=== PATIENT | female | born 1940 | race Two or more races ===

== ENCOUNTER 2017-05-10 09:46 | Emergency (ER) | payer MEDICARE, MEDICAID ==
[~2017-05-10] VITALS: Ht 167.6 cm; Wt 68.0 kg
[2017-05-10 09:52] VITALS: BP 156/80
== END 2017-05-10 11:38 | disposition home or self-care (01) ==
LOC: EDBD 09:46 → ER 09:46
DX: S50.01XA Contusion of right elbow, initial encounter (principal); W01.0XXA Fall on same level from slipping, tripping and stumbling without subsequent striking against object, initial encounter; Y93.89 Activity, other specified; Y92.89 Other specified places as the place of occurrence of the external cause; Y99.8 Other external cause status
CPT/HCPCS: 73030; 73080

== ENCOUNTER 2017-10-11 18:01 | Inpatient (IN) | payer MEDICARE, MEDICAID ==
[~2017-10-11] VITALS: Ht 154.9 cm; Wt 75.6 kg
[2017-10-11 19:56] LABS: Alanine Aminotransferase 22 U/L (13-56); Albumin 3.6 g/dL (3.4-5.0); Alkaline Phosphatase 106 U/L (45-117); Anion Gap 9 (5-15); Aspartate Aminotransferase 22 U/L (15-37); BUN/Creatinine Ratio 14.9; Bilirubin, Total 0.4 mg/dL (0.2-1.0); Blood Urea Nitrogen 10 mg/dL (7-18); Calcium 8.6 mg/dL (8.5-10.1); Carbon Dioxide 23 mmol/L (21-32); Chloride 93 mmol/L (98-107); GFR African American 110 mL/min; GFR Non-African American 91 mL/min; Glucose 108 mg/dL (74-106); Potassium 4.2 mmol/L (3.5-5.1); Sodium 125 mmol/L (136-145); Total Protein 8.4 g/dL (6.4-8.2)
[2017-10-11 20:31] LABS: Basophils # (auto) 0.1 uL; Basophils % (auto) 1.1 % (0.0-2.0); Eosinophils # (auto) 0.1 uL; Eosinophils % (auto) 2.2 % (0.0-7.0); Hematocrit 33.5 % (36.0-46.0); Hemoglobin 11.1 g/dL (12.2-16.2); Lymphocytes % (auto) 21.7 % (10.0-50.0); Mean Corpuscular Hemoglobin 29.4 pg (28.0-32.0); Mean Corpuscular Hgb Conc. 33.3 g/dL (32.0-36.0); Mean Corpuscular Volume 88.2 fL (80.0-100.0); Monocytes # (auto) 0.4 uL; Monocytes % (auto) 9.1 % (0.0-12.0); Neutrophils # (auto) 3.1 uL; Neutrophils % (auto) 65.9 % (37.0-80.0); Nucleated Red Blood Cells % 0.1 %; Platelet Count (auto) 249 10^3/uL (140-450); Red Blood Cells 3.79 10^6/uL (4.0-5.20); Red Cell Distribution Width 15.7 % (11.8-14.3); White Blood Cell 4.7 10^3/uL (4.4-10.8)
[2017-10-11] MEDS ORDERED: IOHEXOL 350 MG/ML 100ML IJ ONE (21:21)
[2017-10-11] MEDS ORDERED: ASPirin-EC 325mg tab PO ONE (21:30)
[2017-10-11] MEDS ORDERED: SODIUM CHLORIDE 0.9% 500 ML IV ONE (21:30)
[2017-10-11 22:11] LABS: INR 0.92 (0.9-1.15); Partial Thromboplastin Time 28.4 sec (22.64-33.71)
[2017-10-11 23:12] LABS: Urine Bacteria NONE SEEN /hpf (None Seen); Urine Blood Negative /uL (Negative); Urine Specific Gravity 1.016 (1.001-1.035); Urine WBC <1 /hpf (0 - 5)
[2017-10-12] VITALS (7 sets, daily range): BP systolic 99–132; BP diastolic 51–69
[2017-10-12] MEDS ORDERED: ACETAMINOPHEN 500 MG TAB PO PRN (01:00)
[2017-10-12] MEDS ORDERED: DEXTROSE (50%) 50ML SYRG IV PRN (01:00)
[2017-10-12] MEDS ORDERED: ONDANSETRON HCL 4 MG/2 ML VIAL IV PRN (01:00)
[2017-10-12] MEDS ORDERED: SODIUM CHLORIDE 0.9% 1,000 ML IV ONE (01:00)
[2017-10-12] MEDS ORDERED: MORPHINE SULFATE 4 MG/ML SYR/VIAL IV PRN (01:15)
[2017-10-12] MEDS ORDERED: LORazepam 0.5 MG TAB PO PRN (01:30)
[2017-10-12] MEDS: DOXYCYCLINE HYC 100MG/250ML 250 ML IV SCH ×3 (02:25→22:04)
[2017-10-12] MEDS: HYDROcodone-ACET 5/325MG TAB PO PRN (02:26)
[2017-10-12] MEDS ORDERED: ALBU2TAB4 IN (04:34)
[2017-10-12] MEDS ORDERED: [UNRECOGNIZED DRUG - CODE] PO (04:34)
[2017-10-12] MEDS ORDERED: PRO125RS PR (04:34)
[2017-10-12] MEDS ORDERED: GLIP2.5T28 PO (04:34)
[2017-10-12] MEDS ORDERED: NAP500T PO (04:34)
[2017-10-12] MEDS ORDERED: FERR27TA2 PO (04:34)
[2017-10-12] MEDS ORDERED: LEVO-28 PO (04:34)
[2017-10-12] MEDS ORDERED: AMOX250C3 PO (04:34)
[2017-10-12] MEDS ORDERED: INFLUENZA QUAD 2017-2018 0.5 ML SYRG IM ONE (06:00)
[2017-10-12] MEDS ORDERED: PNEUMOCOCCAL VACC POLYS 25 MCG/0.5 ML VIAL IM ONE (06:00)
[2017-10-12] MEDS: InsuLIN REG 1unit/0.01ml Soln (100units/ml) SC SCH ×4 (06:42→22:06)
[2017-10-12] MEDS ORDERED: InsuLIN REG 1unit/0.01ml Soln (100units/ml) SC SCH ×2 (07:00→22:00)
[2017-10-12 07:20] LABS: Basophils # (auto) 0.1 uL; Basophils % (auto) 1.7 % (0.0-2.0); Eosinophils # (auto) 0.1 uL; Eosinophils % (auto) 1.8 % (0.0-7.0); Hemoglobin 9.6 g/dL (12.2-16.2); Lymphocytes # (auto) 0.8 uL; Lymphocytes % (auto) 26.2 % (10.0-50.0); Mean Corpuscular Hemoglobin 29.5 pg (28.0-32.0); Mean Corpuscular Hgb Conc. 33.1 g/dL (32.0-36.0); Mean Corpuscular Volume 89.1 fL (80.0-100.0); Monocytes # (auto) 0.3 uL; Monocytes % (auto) 11.3 % (0.0-12.0); Neutrophils # (auto) 1.7 uL; Platelet Count (auto) 214 10^3/uL (140-450); Red Blood Cells 3.26 10^6/uL (4.0-5.20); Red Cell Distribution Width 15.7 % (11.8-14.3); White Blood Cell 2.9 10^3/uL (4.4-10.8)
[2017-10-12] MEDS: ACCU-CHEK COMFORT CURVE STRIP VI SCH ×4 (07:23→22:05)
[2017-10-12 07:33] LABS: BUN/Creatinine Ratio 12.7; Calcium 7.9 mg/dL (8.5-10.1); Potassium 3.8 mmol/L (3.5-5.1)
[2017-10-12] MEDS: cefTRIAXone 1GM/10ml IVPUSH 10 ML IV SCH (15:02)
[2017-10-12] MEDS ORDERED: guaiFENesin 200 MG/10 ML UD PO PRN (15:45)
[2017-10-12] MEDS: guaiFENesin 200 MG/10 ML UD PO PRN ×2 (17:00→22:05)
[2017-10-13] MEDS: HYDROcodone-ACET 5/325MG TAB PO PRN (02:46)
[2017-10-13 05:33] VITALS: BP 97/51
[2017-10-13 05:34] LABS: Basophils # (auto) 0 uL; Basophils % (auto) 1.3 % (0.0-2.0); Eosinophils # (auto) 0.1 uL; Eosinophils % (auto) 3.8 % (0.0-7.0); Hematocrit 30.3 % (36.0-46.0); Hemoglobin 10.1 g/dL (12.2-16.2); Lymphocytes # (auto) 0.9 uL; Lymphocytes % (auto) 29.7 % (10.0-50.0); Mean Corpuscular Hemoglobin 29.8 pg (28.0-32.0); Mean Corpuscular Hgb Conc. 33.4 g/dL (32.0-36.0); Mean Corpuscular Volume 89.3 fL (80.0-100.0); Monocytes # (auto) 0.4 uL; Monocytes % (auto) 12.2 % (0.0-12.0); Neutrophils # (auto) 1.6 uL; Platelet Count (auto) 208 10^3/uL (140-450); Red Cell Distribution Width 15.7 % (11.8-14.3); White Blood Cell 3.1 10^3/uL (4.4-10.8)
[2017-10-13 05:54] LABS: BUN/Creatinine Ratio 15.8; Calcium 8.1 mg/dL (8.5-10.1); Potassium 3.6 mmol/L (3.5-5.1)
[2017-10-13] MEDS: InsuLIN REG 1unit/0.01ml Soln (100units/ml) SC SCH ×4 (06:23→21:14)
[2017-10-13] MEDS: ACCU-CHEK COMFORT CURVE STRIP VI SCH ×4 (06:23→21:14)
[2017-10-13] MEDS: guaiFENesin 200 MG/10 ML UD PO PRN (06:24)
[2017-10-13 09:00] VITALS: BP 124/53
[2017-10-13] MEDS ORDERED: POTASSIUM CHL 20 Meq TABLET PO ONE (09:30)
[2017-10-13] MEDS: DOXYCYCLINE HYC 100MG/250ML 250 ML IV SCH ×2 (09:55→17:04)
[2017-10-13] MEDS: cefTRIAXone 1GM/10ml IVPUSH 10 ML IV SCH (09:55)
[2017-10-13 12:24] VITALS: BP 115/63
[2017-10-13 16:46] VITALS: BP 112/57
[2017-10-13] MEDS ORDERED: DOXYCYCLINE HYC 100MG/250ML 250 ML IV SCH (17:15)
[2017-10-13 22:09] VITALS: BP 100/52
[2017-10-14] MEDS ORDERED: DOXYCYCLINE HYC 100MG/250ML 250 ML IV SCH (05:00)
[2017-10-14 05:23] VITALS: BP 131/69
[2017-10-14 05:43] LABS: Basophils # (auto) 0 uL; Basophils % (auto) 1.2 % (0.0-2.0); Eosinophils # (auto) 0.2 uL; Eosinophils % (auto) 5.3 % (0.0-7.0); Hematocrit 30.1 % (36.0-46.0); Hemoglobin 10.2 g/dL (12.2-16.2); Lymphocytes # (auto) 1.3 uL; Lymphocytes % (auto) 40.3 % (10.0-50.0); Mean Corpuscular Hgb Conc. 33.7 g/dL (32.0-36.0); Mean Corpuscular Volume 88.9 fL (80.0-100.0); Monocytes # (auto) 0.4 uL; Neutrophils # (auto) 1.3 uL; Neutrophils % (auto) 40.2 % (37.0-80.0); Nucleated Red Blood Cells % 0.3 %; Platelet Count (auto) 212 10^3/uL (140-450); Red Blood Cells 3.39 10^6/uL (4.0-5.20); Red Cell Distribution Width 15.4 % (11.8-14.3); White Blood Cell 3.2 10^3/uL (4.4-10.8)
[2017-10-14 05:58] LABS: Calcium 8.8 mg/dL (8.5-10.1); Potassium 4.3 mmol/L (3.5-5.1)
[2017-10-14] MEDS: InsuLIN REG 1unit/0.01ml Soln (100units/ml) SC SCH ×2 (06:02→11:30)
[2017-10-14] MEDS: ACCU-CHEK COMFORT CURVE STRIP VI SCH ×2 (06:02→11:30)
[2017-10-14 09:00] VITALS: BP 104/57
[2017-10-14] MEDS: cefTRIAXone 1GM/10ml IVPUSH 10 ML IV SCH (10:42)
[2017-10-14] MEDS: guaiFENesin 200 MG/10 ML UD PO PRN (12:46)
[2017-10-14 12:59] VITALS: BP 116/57
== END 2017-10-14 13:30 | disposition home health service (06) | DRG 194 ==
LOC: ER 18:01 → TELE 18:02 → TELE-WESTW 10-12 02:56
PROVIDERS: ADMIT Nurse Practitioner Family; ATTEND Internal Medicine
DX: J18.9 Pneumonia, unspecified organism (principal); E87.1 Hypo-osmolality and hyponatremia; D64.9 Anemia, unspecified; E11.9 Type 2 diabetes mellitus without complications; I70.0 Atherosclerosis of aorta; F41.9 Anxiety disorder, unspecified; J98.11 Atelectasis; Z96.649 Presence of unspecified artificial hip joint; Z96.651 Presence of right artificial knee joint; Z79.84 Long term (current) use of oral hypoglycemic drugs; Z23 Encounter for immunization
CPT/HCPCS: 36415; 70450; 71046; 71275; 80048; 80053; 81001; 82962; 83036; 83735; 83880; 83930; 83935; 84484; 85025; 85610; 85730; 87040; 87205; 93005; 94761; 96360; 96361; J1815; J3490

== ENCOUNTER → 2017-10-27 | Outpatient (CLI) | payer MEDICARE, MEDICAID ==
[~2017-10-27] MED LIST: ALBU2TAB4 IN; FERR27TA2 PO; GLIP2.5T28 PO; NAP500T PO; PRO125RS PR; [UNRECOGNIZED DRUG - CODE] PO
== END | disposition home or self-care (01) ==
LOC: LAB 08:24
PROVIDERS: ATTEND Internal Medicine
DX: E11.9 Type 2 diabetes mellitus without complications (principal); Z79.84 Long term (current) use of oral hypoglycemic drugs
CPT/HCPCS: 36415; 83036

== ENCOUNTER → 2018-09-13 | Outpatient (CLI) | payer MEDICARE, MEDICAID | END | disposition home or self-care (01) | LOC: LAB 08:37 | PROVIDERS: ATTEND Internal Medicine | DX: E11.9 Type 2 diabetes mellitus without complications (principal) | CPT/HCPCS: 36415; 83036 ==